=== PATIENT | female | born 1995 ===

== ENCOUNTER → 2022-06-07 | Outpatient (REF) | LOC: M LAB LCGH 15:54 | PROVIDERS: ATTEND Internal Medicine | DX: Z13.228 Encounter for screening for other metabolic disorders (principal) ==

== ENCOUNTER → 2024-04-22 | Outpatient (REF) | payer MEDICARE, MEDICAID ==
[2024-04-22 18:55] LABS: CREATININE,RANDOM URINE 91.6 MG/DL
== END ==
LOC: M LAB REF 17:25
PROVIDERS: ATTEND Internal Medicine Nephrology
DX: E87.1 Hypo-osmolality and hyponatremia (principal)